=== PATIENT | female | born 1985 | race Caucasian/White ===

== ENCOUNTER 2016-12-02 08:03 | Inpatient (IN) | payer BC ==
[2016-12-02 08:35] LABS: Hematocrit 35 % (35-47); Hemoglobin 12.1 g/dl (12.0-16.0); Mean Corpuscular HGB Conc 34 g/dl (31-36); Mean Corpuscular Hemoglobin 30 pg (27-31); Mean Corpuscular Volume 86 fL (80-97); Mean Platelet Volume 9 um3 (7.4-10.4); Red Blood Count 4.07 10^6/ul (4.0-5.4); Red Cell Distribution Width 13 % (10.5-15)
[2016-12-02 08:36] LABS: Comments Flag Yes
[2016-12-02] MEDS ORDERED: Oxytocin in LR* 20 UNITS/1,000 ML BAG IVPB SCH (10:00)
[2016-12-02] MEDS ORDERED: Promethazine INJ(RESTRICTED)* 25 MG/ML 1 ML VIAL ONE (17:00)
[2016-12-02] MEDS: Nalbuphine* 20 MG/ML 1 ML VIAL ONE ×2 (17:04→17:06)
[2016-12-02] MEDS ORDERED: Nalbuphine* 20 MG/ML 1 ML VIAL IV ONE (17:05)
[2016-12-02] MEDS ORDERED: Promethazine INJ(RESTRICTED)* 25 MG/ML 1 ML VIAL IV ONE (17:05)
[2016-12-02] MEDS ORDERED: OBEPIDURAL* 250 ML ONE (18:27)
[2016-12-02] MEDS ORDERED: Sodium Citrate/Citric Acid* 15 ML UDC PO PRN (19:31)
[2016-12-02] MEDS ORDERED: Phenylephrine IV* 40 MCG/ML 10 ML SYRINGE IV PUSH PRN ×2 (19:31)
[2016-12-02] MEDS ORDERED: Misoprostol TAB* 200 MCG ONE (23:24)
[2016-12-02] MEDS ORDERED: Dibucaine 1% 28.35 GM TUBE PR PRN (23:44)
[2016-12-02] MEDS ORDERED: Glycerin ADULT SUPP PR PRN (23:44)
[2016-12-02] MEDS ORDERED: oxyCODONE/Acetamin 5/325 MG* TAB PO PRN (23:44)
[2016-12-02] MEDS ORDERED: Witch Hazel PAD* JAR TOPICAL PRN (23:44)
[2016-12-02] MEDS ORDERED: Zolpidem TAB* 5 MG PO PRN (23:44)
[2016-12-02] MEDS ORDERED: Acetaminophen TAB* 325 MG PO PRN (23:44)
[2016-12-02] MEDS ORDERED: Ibuprofen TAB* 600 MG PO PRN (23:44)
[2016-12-02] MEDS ORDERED: Misoprostol TAB* 200 MCG PR ONE (23:44)
[2016-12-03] MEDS: Docusate CAP* 100 MG PO SCH ×3 (09:00→20:53)
[2016-12-03] MEDS: Simethicone CHEW TAB* 80 MG PO SCH ×3 (09:00→19:33)
[2016-12-03] MEDS: Ferrous Gluconate TAB* 324 MG TAB PO SCH ×2 (09:00→20:53)
[2016-12-03 09:01] LABS: Comments Flag Yes; Hematocrit 33 % (35-47); Hemoglobin 11.1 g/dl (12.0-16.0); Mean Corpuscular HGB Conc 33 g/dl (31-36); Mean Corpuscular Hemoglobin 29 pg (27-31); Mean Corpuscular Volume 87 fL (80-97); Mean Platelet Volume 9 um3 (7.4-10.4); Red Cell Distribution Width 13 % (10.5-15); White Blood Count 17.8 10^3/ul (3.5-10.8)
[2016-12-03] MEDS: OBEPIDURAL* 250 ML EPIDURAL SCH ×2 (19:34→20:52)
[2016-12-04 07:55] VITALS: BP 123/73
[2016-12-04] MEDS: Docusate CAP* 100 MG PO SCH (09:11)
[2016-12-04] MEDS: Ferrous Gluconate TAB* 324 MG TAB PO SCH (09:11)
== END 2016-12-04 12:36 | disposition home or self-care (01) | DRG 560 ==
LOC: MCHOBOUT 08:03 → MCHOB 08:29
PROVIDERS: ADMIT Obstetrics & Gynecology; ATTEND Obstetrics & Gynecology
PROC: 10E0XZZ Delivery of Products of Conception, External Approach (ICD-10-PCS; principal; 2016-12-02)
PROC: 0W8NXZZ Division of Female Perineum, External Approach (ICD-10-PCS; 2016-12-02)
DX: O99.12 Other diseases of the blood and blood-forming organs and certain disorders involving the immune mechanism complicating childbirth (principal); D69.6 Thrombocytopenia, unspecified; O77.0 Labor and delivery complicated by meconium in amniotic fluid; O26.893 Other specified pregnancy related conditions, third trimester; Z67.91 Unspecified blood type, Rh negative; Z3A.39 39 weeks gestation of pregnancy; Z37.0 Single live birth
CPT/HCPCS: 36415; 85025; 86850; 86900; 86901; A9270-GY; J2300; J2550

== ENCOUNTER 2018-04-29 15:54 | Emergency (ER) | payer SELFPAY ==
[2018-04-29] MEDS ORDERED: NS 0.9% 1000 ML* 1,000 ML IV ONE (15:58)
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
[2018-04-29 17:20] LABS: ABS Basophils 0 10^3/ul (0-0.2); ABS Eosinophils 0.1 10^3/ul (0-0.6); ABS Lymphocytes 2.3 10^3/ul (1.0-4.8); ABS Monocytes 0.4 10^3/ul (0-0.8); ABS Neutrophils 4.4 10^3/ul (1.5-7.7); ABS Nucleated RBC 0 10^3/ul; Eosinophil % 1.4 % (0-6); Hematocrit 42 % (35-47); Hemoglobin 14.3 g/dl (12.0-16.0); Lymphocyte % 31.3 % (25-47); Mean Corpuscular HGB Conc 34 g/dl (31-36); Mean Corpuscular Hemoglobin 30 pg (27-31); Mean Corpuscular Volume 87 fL (80-97); Mean Platelet Volume 7.6 um3 (7.4-10.4); Nucleated Red Blood Cells % 0.1; Platelet Count 133 10^3/ul (150-450); Red Blood Count 4.87 10^6/ul (4.00-5.40); Red Cell Distribution Width 12 % (10.5-15); White Blood Count 7.2 10^3/ul (3.5-10.8)
[2018-04-29 17:28] LABS: INR 1.05 (0.77-1.02)
[2018-04-29 17:38] LABS: EGFR Non-African American 70.8 (>60)
[2018-04-29] MEDS ORDERED: Iohexol 300* (CONTRAST) 10 ML SDV IV ONE (17:51)
[2018-04-29 19:01] VITALS: BP 116/62
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
--- NOTE | 2018-04-30 09:24 | RAD ---
Indication: Abdominal pain. Contrast: Administered 72.0 ml of OMNIPAQUE 300 mg/ml. CT of the chest, abdomen and pelvis was performed after oral and IV contrast administration. Coronal and sagittal reconstructed images were obtained. Inferior thyroid lobes are unremarkable. No mediastinal or hilar adenopathy is noted. The heart is of normal size without evidence of pericardial effusion. The trachea and major bronchi appear patent. The lung holley demonstrate no evidence of pleural fluid, nodules or masses. No alveolar consolidation is noted. No pneumothorax is noted. The axilla demonstrates no evidence of abnormal adenopathy. CT of the abdomen and pelvis demonstrates the liver to be normal in size. Low density lesion in the right lobe of the liver measuring 1.4 cm is consistent with a cyst or hemangioma. There appears to be peripheral nodular enhancement noted. There is a low density lesion in the right lobe of the liver just adjacent to the inferior vena cava which likely represents a cyst or hemangioma. Additional 3 mm cyst is noted in the medial segment of the left lobe of the liver. No intrahepatic duct dilatation is noted. The spleen is normal in size. Pancreas demonstrates no mass or pancreatic duct dilatation. No adrenal masses are noted. The kidneys demonstrate symmetric nephrograms. No retroperitoneal lymphadenopathy is noted. No dilated loops of bowel are noted. The colon is filled with stool. The urinary bladder is otherwise unremarkable. No free fluid is identified. The uterus and ovaries are otherwise unremarkable. No evidence of appendicitis is noted. IMPRESSION: Low density lesions in the right lobe of the liver likely representing cysts or hemangiomas. No acute changes are noted. The study is limited due to lack of oral contrast. No free fluid is identified.
== END 2018-04-29 19:23 | disposition home or self-care (01) ==
LOC: ED 15:54
DX: R07.9 Chest pain, unspecified (principal); R10.9 Unspecified abdominal pain; Z04.1 Encounter for examination and observation following transport accident
CPT/HCPCS: 36415; 71260; 74177; 80053; 83605; 83690; 84702; 85025; 85610; 85730; 99283; Q9967